=== PATIENT | male | born 1970 | race Caucasian/White ===

== ENCOUNTER 2018-07-12 19:28 | Emergency (ER) | payer OTHER ==
[~2018-07-12] VITALS: Ht 182.8 cm; Wt 86.2 kg
[2018-07-12] MEDS ORDERED: CEPACOL SORE T1 EACH MM (19:52)
== END 2018-07-12 20:06 | disposition home or self-care (01) ==
LOC: ED
DX: H57.12 Ocular pain, left eye (principal); H57.89 Other specified disorders of eye and adnexa; J02.9 Acute pharyngitis, unspecified; Z90.49 Acquired absence of other specified parts of digestive tract

== ENCOUNTER → 2019-06-05 | Outpatient (CLI) | payer OTHER ==
[~2019-06-05] MED LIST: CEPACOL SORE T1 EACH MM
== END | disposition home or self-care (01) ==
LOC: RAD 09:06
DX: M47.812 Spondylosis without myelopathy or radiculopathy, cervical region (principal); M48.02 Spinal stenosis, cervical region; M99.01 Segmental and somatic dysfunction of cervical region; R42 Dizziness and giddiness